=== PATIENT | female | born 1950 | race African-American/Black ===

== ENCOUNTER 2020-04-23 14:59 | Emergency (ER) | payer MEDICARE ==
[~2020-04-23] VITALS: Ht 160 cm; Wt 63.5 kg
--- NOTE | 2020-04-23 15:00 | NUR ---
ED Nurse Note: patient and paramedics waiting outside. No isolation room at this time. ER charge nurse notified.
--- NOTE | 2020-04-23 15:22 | Emergency Room Report ---
History of Present Illness General Chief Complaint: Multiple Trauma/Fall Source: Patient, Medical Record, PMD Present Illness HPI 70-year-old female with past medical history of CAD, stents x2 in RCA, hypertension, diabetes, Covid sent by PMD from senior care facility status post mechanical fall while working with physical therapy today prior to arrival. She endorses mild headache that was gradual in onset. Not worst of life. Patient denies loss of consciousness, neck pain, nausea, vomiting, diarrhea, chest pain, weakness, back pain, abdominal pain, melena, hematochezia or any other symptoms. Patient is on aspirin and Plavix. The patient's symptoms were gradual onset, severity was moderate, duration since 1 day. Quality: Aching Past medical history: CAD, stent x2, hypertension, diabetes, Covid Past surgical history: Stent x2 Smoking: Denies Alcohol use: Denies Drug use: Denies Review of systems: CONST: No fevers or chills, No night sweats PULMONARY: No productive cough, No shortness of breath CARDIAC: No chest pain, No palpitations GI: No vomiting, No diarrhea , No melena_or_BRBPR : No dysuria, No hematuria, No discharge NEURO: No new_focal_weakness_or_numbness, No confusion, No vision changes 14 point Review of Systems is otherwise negative except per HPI Physical Exam: GENERAL: Awake_alert_ nontoxic, no acute distress Spo2 97% on RA -normal EYES: Extraocular muscles are intact. Conjunctivae clear. Lids without swelling. No nystagmus. No nasal septal hematoma. No midface instability. ENT: External nose and ear normal_in_appearance. Oropharynx clear. Head_atraumatic, Moist_oral_mucosa. No oropharyngeal trauma. NECK: No JVD. No meningismus. No thyromegaly. Supple. Trachea midline. No midline cervical, thoracic, lumbar step-offs. No deformity. RESP: Normal respiratory effort. Symmetric rise. No stridor. Clear_to_auscultation_No_rales_No_wheezes No chest wall crepitus. CARDIAC: Regular rate and regular rhytm. No_significant pedal edema. ABDOMEN: Soft. Nondistended. Nontender_No_rebound_or_guarding. No pelvic inst ability MSK: Normal muscle tone, without rigidity. Extremities without asymmetric deformity or swelling. SKIN: Warm and dry. No visible cyanosis or pallor NEUROLOGIC: Alert, oriented x3. Motor_and_sensation_grossly_intact. No truncal ataxia. Gait_normal Psych: Normal mood and affect, normal judgment and insight - COORDINATION OF CARE Case was discussed with: Patient , Patient physician Dr. Camarena Any imaging that was ordered were interpreted as part of the medical decision making: Medical Decision Making/Plan: I spoke with patient's primary care doctor who knows her case well. He is requesting CT head to evaluate for intracranial hemorrhage after witnessed fall this morning. Differential diagnosis includes closed head injury, scalp contusion, neck muscle spasm / strain, vs less likely skull fracture, intracranial bleeding, vertebral fracture, spinal cord compression / injury, among others. Given the patients significant mechanism, CT scans of the head/c spine were immediately obtained and showed no evidence of any emergent findings. The patient is non-toxic, well appearing and significantly improved with observation and serial exams in the emergency department. The patient is neurologically intact and able to ambulate, no evidence of spinal cord injury. Hips have no tenderness or significant pain with range of motion and the patient is able to ambulate without difficulty, no evidence of hip fracture. Patient is stable for discharge home and follow up with their regular doctor in 1-2 days. 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 COVID-19 Screening: Positive COVID-19 COVID-19 Testing Source: 04/11/20 Nursing Documentation-[facility] Past Medical History: No History, Except For Hx Diabetes: Yes Physical Exam Vital Signs Date Time Temp Pulse Resp B/P (MAP) Pulse Ox O2 Delivery O2 Flow Rate FiO2 04/23/20 15:00 97.3 73 18 127/82 (97) 97 Room Air Sp02 EP Interpretation: reviewed, normal Medical Decision Making Diagnostic Impression: Primary Impression: Head trauma Additional Impressions: Fall COVID-19 Reevaluation Time: 15:21 Last Vital Signs Date Time Temp Pulse Resp B/P (MAP) Pulse Ox O2 Delivery O2 Flow Rate FiO2 04/23/20 15:00 97.3 73 18 127/82 (97) 97 Room Air Status: improved Disposition: SNF Admit Decision Time: 16:45 Condition: Stable Patient Instructions: Head Injury, Adult, [place] Additional Instructions: 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 Camarena In 1-2 days. Follow-up with your doctor sooner if your condition requires a more timely clinical reevaluation. Return to the emergency department immediately if you feel that your condition is worsening or if you have any new or concerning symptoms. Review your discharge instructions and take any prescriptions given as instructed. [facility] PROVIDES FREE OR LOW-COST HEALTH SERVICES TO PEOPLE WHO CAN SHOW PROOF THAT THEY LIVE IN [facility]. TO FIND MORE CLINICS PARTNERED WITH [facility] TO PROVIDE SERVICE, PLEASE CALL . Aide Gonzalez D.O. Apr 23, 2020 15:22
--- NOTE | 2020-04-23 16:00 | NUR ---
ED Nurse Note: brought in by ems from [facility] for s/p fall at around 1130 this morning. pt lost balance then fell against a wall. denies loc or pain or presents with trauma. vss, nad, aaox4, ambulatory, droplet precaution observed as pt is positive covid per ems.
--- NOTE | 2020-04-23 16:15 | NUR ---
ED Nurse Note: pt went to ct
--- NOTE | 2020-04-23 16:30 | NUR ---
ED Nurse Note: pt back from ct
--- NOTE | 2020-04-23 17:08 | Diagnostic Imaging Report ---
CT C SPINE HISTORY: Fall TECHNIQUE: One or more of the following dose reduction techniques were used: automated exposure control, adjustment of the mA and/or kV according to patient size, use of iterative reconstruction technique. One or more of the following dose reduction techniques were used: automated exposure control, adjustment of the mA and/or kV according to patient size, use of iterative reconstruction technique. Total Exam volume computed tomography dose index (CTDIvol) = 20.0 mGy and Dose Length Product (DLP) = 48.4 mGY-c TECHNIQUE: Multiple, contiguous 2.5 mm axial cuts of the cervical spine are obtained from the skull base to the thoracic inlet. Sagittal and coronal images provided. No IV contrast is administered. COMPARISON: None FINDINGS: No fracture or subluxations are noted. The vertebral body heights and alignment are preserved. No prevertebral soft tissue swelling. Note is made of multilevel cervical spondylosis with varying degrees of central canal and foramina stenoses. Cortical atrophy of the intracranial structures with prior lacunar infarcts in the basal ganglia. Dense carotid artery atherosclerosis demonstrated. This mild soft tissue prominence of the posterior left base of the tongue noted. Enlarged and heterogeneous appearance to the thyroid lobes with multiple masses demonstrated. Dense proximal carotid artery atherosclerosis demonstrated. IMPRESSION: 1. No cervical fractures. 2. Cervical spondylosis with varying degrees of central canal and foramina stenoses. Soft tissue prominence of the left posterior base the tongue which may be better assessed with contrast-enhanced CT of the neck with contrast. Enlarged heterogeneous appearance to both thyroid lobes with multiple thyroid nodules demonstrated.
--- NOTE | 2020-04-23 17:16 | Diagnostic Imaging Report ---
CT HEAD Without Contrast HISTORY: Fall TECHNIQUE: One or more of the following dose reduction techniques were used: automated exposure control, adjustment of the mA and/or kV according to patient size, use of iterative reconstruction technique. One or more of the following dose reduction techniques were used: automated exposure control, adjustment of the mA and/or kV according to patient size, use of iterative reconstruction technique. Total Exam volume computed tomography dose index (CTDIvol) = 53.4 mGy and Dose Length Product (DLP) = 1045.5 mGY- TECHNIQUE: Multiple, contiguous 2.5 mm axial cuts of the brain are obtained from the posterior fossa to the cranial vault. Coronal reconstructions. No IV contrast is administered. COMPARISON: FINDINGS: No intracranial hemorrhage, abnormal intra- or extra-axial collections or parenchymal lesions are seen. There are involutional changes with prominence of the sulci, basal cisterns and ventricles. Scattered white matter hypoattenuations are present, likely from small vessel disease. The menezes-white differentiation is preserved. No evidence of mass effect, midline shift, or edema. The osseous structures are unremarkable. The visualized portions of the paranasal sinuses are clear. IMPRESSION: 1. No acute intracranial process. 2. Involutional changes with small vessel disease.
--- NOTE | 2020-04-23 19:08 | NUR ---
ER DISCHARGE NOTE: Patient is cleared to be discharged via [facility] back to [facility] per ERMD, pt is aox4, 99% on room air, with stable vital signs. pt was given dc instructions, pt was able to verbalize understanding, pt id band removed without complications. pt is able to ambulate with unsteady gait. pt took all belongings. [facility] [place] [facility].
[2020-04-23 19:19] VITALS: BP 132/75
== END 2020-04-23 19:06 | disposition home or self-care (01) ==
LOC: EDBD 14:59 → EMR 15:33
DX: S09.90XA Unspecified injury of head, initial encounter (principal); U07.1 COVID-19; E11.9 Type 2 diabetes mellitus without complications; I25.10 Atherosclerotic heart disease of native coronary artery without angina pectoris; I10 Essential (primary) hypertension; W01.0XXA Fall on same level from slipping, tripping and stumbling without subsequent striking against object, initial encounter; Y93.01 Activity, walking, marching and hiking; Y92.129 Unspecified place in nursing home as the place of occurrence of the external cause; Z95.5 Presence of coronary angioplasty implant and graft
CPT/HCPCS: 70450; 72125; 99284